=== PATIENT | male | born 1990 | race Caucasian/White ===

== ENCOUNTER 2024-08-15 15:11 | Emergency (ER) | payer OTHER, SELFPAY ==
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
[2024-08-15 15:57] VITALS: BP 131/78; PULSE 56; RESP 16; TEMP 36.1; O2SAT 99; BMI 35.5
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
[2024-08-15 21:01] VITALS: BP 118/64; PULSE 50; RESP 16; TEMP 36.1; O2SAT 97
[2024-08-15 21:58] VITALS: BP 138/87; PULSE 104; RESP 16; TEMP 37.1; O2SAT 99
--- NOTE | 2024-08-15 22:15 | ECG_ITS ---
Test Reason : CP Blood Pressure : / mmHG Vent. Rate : 041 BPM Atrial Rate : 041 BPM P-R Int : 196 ms QRS Dur : 100 ms QT Int : 446 ms P-R-T Axes : 038 065 040 degrees QTc Int : 367 ms Marked sinus bradycardia Abnormal ECG No previous ECGs available Referred By: Franca Carey Electronically Signed By:VIOLETA NEFF MD
[2024-08-15 22:53] LABS: MANUAL DIFF FLAG NO
[2024-08-15 22:58] LABS: Basophils Percent Auto 0.4 % (0-2); Eosinophils Absolute Auto 0.2 X10*3/uL (0.0-0.4); Hematocrit 43.5 % (42.0-52.0); Hemoglobin 14.9 g/dl (14.0-18.0); Imm Gran Abs Auto 0.01 X10*3/uL (0.00-0.03); Imm Gran Pct Auto 0.1 % (0.0-0.4); Lymphocytes Absolute Auto 2.7 X10*3/uL (1.2-4.9); Lymphocytes Percent Auto 35.4 % (20-40); Mean Corpuscular HGB Conc 34.3 g/dl (31.0-36.0); Mean Corpuscular Hemoglobin 29.4 pg (27.0-33.0); Mean Platelet Volume 9.9 fL (9.4-12.4); Monocytes Absolute Auto 0.5 X10*3/uL (0.1-1.2); Monocytes Percent Auto 6.2 % (2-11); Neutrophils Absolute Auto 4.2 x10*3/uL (2.0-8.3); Neutrophils Percent Auto 55.9 % (45-73); Platelet Count 239 X10*3/uL (160-400); Red Blood Count 5.06 X10*6/uL (4.60-5.80); White Blood Count 7.6 X10*3/uL (4.8-10.8)
[2024-08-15 23:04] LABS: Anion Gap 11 (12-20); Blood Urea Nitrogen 21 mg/dL (9-16); Calcium 9.1 mg/dL (8.4-10.2); Carbon Dioxide 27 mmol/L (22-29); Chloride 107 mmol/L (96-108); Creatinine Clr Calc Pharmacy 156.3; Estimated Glomerular Filt Rate > 60; Glucose Random 100 mg/dL (60-115); Potassium 4.2 mmol/L (3.3-5.1); Sodium 141 mmol/L (135-145)
[2024-08-15 23:21] LABS: Troponin-I High Sensitivity < 2.7 ng/L (<3.5-35.0)
[2024-08-16 00:12] VITALS: BP 138/87; PULSE 104; RESP 16; TEMP 37.1; O2SAT 99
== END 2024-08-16 00:13 | disposition home or self-care (01) ==
PROVIDERS: Emergency Provider Emergency Medicine
DX: S09.90XA Unspecified injury of head, initial encounter (principal); S20.213A Contusion of bilateral front wall of thorax, initial encounter; R42 Dizziness and giddiness; R07.89 Other chest pain; M54.2 Cervicalgia; R51.9 Headache, unspecified; R11.2 Nausea with vomiting, unspecified; V13.4XXA Pedal cycle driver injured in collision with car, pick-up truck or van in traffic accident, initial encounter; Y93.89 Activity, other specified; Y92.488 Other paved roadways as the place of occurrence of the external cause; Y99.8 Other external cause status; Z79.899 Other long term (current) drug therapy
CPT/HCPCS: 36415; 70450; 71046; 72125; 80048; 84484; 85025; 93005; 99284

== ENCOUNTER → 2024-08-15 22:15 | Outpatient (BNV) | payer OTHER, SELFPAY | PROVIDERS: Emergency Provider Emergency Medicine; Visit Provider Internal Medicine Cardiovascular Disease | DX: R94.31 Abnormal electrocardiogram [ECG] [EKG] (principal) | CPT/HCPCS: 93010 ==